=== PATIENT | male | born 1945 ===

== ENCOUNTER 2020-12-13 02:20 | Outpatient (CLI) | payer OTHER | END 2020-12-13 02:25 | disposition home or self-care (01) | LOC: SONOGRAMA 02:20 | PROVIDERS: ATTEND Urology | DX: N40.1 Benign prostatic hyperplasia with lower urinary tract symptoms (principal) ==

== ENCOUNTER 2021-02-14 08:00 | Inpatient (IN) | payer OTHER ==
[~2021-02-14] VITALS: Ht 167.6 cm; Wt 65.8 kg
[2021-02-14] MEDS ORDERED: PROSCAR5 MG PO (10:15)
[2021-02-14] MEDS ORDERED: NAMENDA10 MG PO (10:16)
[2021-02-14] MEDS ORDERED: MIRTAZAPINE7.5 MG PO (10:17)
[2021-02-14] MEDS ORDERED: LEXAP PO (10:17)
[2021-02-14] MEDS ORDERED: [UNRECOGNIZED DRUG - CODE] PO (10:18)
[2021-02-14] MEDS ORDERED: NORVASC5 MG PO (10:18)
[2021-02-14] MEDS ORDERED: COZAAR50 MG PO (10:18)
[2021-02-14] MEDS ORDERED: METHENAMINE PO (10:20)
[2021-02-18] MEDS ORDERED: ESCITALOPRAM OX10 MG (11:23)
[2021-02-18] MEDS ORDERED: INDAPAMIDE2.5 MG (11:24)
[2021-02-18] MEDS ORDERED: TAMSULOSIN HCL0.4 MG (11:24)
[2021-02-18] MEDS ORDERED: SILODOSIN8 MG (11:24)
[2021-02-18] MEDS ORDERED: METHENAMINE HIPP1 GM (11:24)
== END 2021-02-19 14:11 | disposition home or self-care (01) | DRG 714 ==
LOC: O/R 02-18 06:15 → SURH 02-18 08:00
PROVIDERS: ADMIT Urology; ATTEND Urology
PROC: 0VB08ZZ Excision of Prostate, Via Natural or Artificial Opening Endoscopic (ICD-10-PCS; principal; 2021-02-18 11:00)
DX: N40.1 Benign prostatic hyperplasia with lower urinary tract symptoms (principal); R33.8 Other retention of urine